=== PATIENT | male | born 1960 | race Two or more races ===

== ENCOUNTER 2022-08-28 10:35 | Day surgery (SDC) | payer OTHER ==
--- NOTE | 2022-08-27 20:47 | HP ---
HISTORY AND PHYSICAL DATE OF SURGERY: 08/28/2022 HISTORY OF PRESENT ILLNESS: Melva Camacho is a 62-year-old patient seen with symptomatic right knee osteoarthritis. We discussed options. He elected to proceed with right total knee arthroplasty. Consent regarding the procedure was obtained. PAST MEDICAL HISTORY: Hypertension, hyperlipidemia, [id number] diabetes. PAST SURGICAL HISTORY: Noncontributory. DAILY MEDICATIONS: 1. Enalapril. 2. Metformin. 3. Pravastatin. 4. Tylenol. 5. Singulair. ALLERGIES: None. SOCIAL HISTORY: Denies tobacco use. PHYSICAL EVALUATION OF RIGHT KNEE: Range of motion is -1/2 to 110 degrees. Tenderness to medial joint line. Mild effusion. Crepitus, medial patellofemoral compartments with range of motion. Some pain with patellofemoral compression. Ligaments stable. Hip rotation without pain. Distal neurovascular exam is intact. RADIOGRAPHS: Right knee radiographs reveal severe osteoarthritic changes. IMPRESSION: 1. Right knee osteoarthritis. 2. Hypertension. 3. Hyperlipidemia. PLAN: Right total knee arthroplasty. MMODL / IJN: [id number] /
[~2022-08-28 10:35] MED LIST: ACETAMINOPHEN TAB 500 MG TAB PO PRN; DEXAMETHASONE SOD PHOSPHATE 4 MG/ML 1 ML VIAL IV ONE; HYDROmorphone 0.5 MG/0.5 ML SYRINGE IVP PRN; LACTATED RINGERS 1,000 ML IV SCH; MELOXICAM 7.5 MG TAB PO PRN; MIDAZOLAM 2 MG/2 ML VIAL IV PRN; ONDANSETRON 4 MG/2 ML VIAL IVP ONE; SCOPOLAMINE 1 MG/72 HR PATCH TRANSDERM ONE; TRANEXAMIC ACID IN NACL,ISO-OS 1,000 MG in SALINE 1 100ML.BAG IVPB PRN
[2022-08-28 11:27] LABS: Glucose,Whole Blood 110 mg/dL (70-110)
[2022-08-28] MEDS ORDERED: fentaNYL (PF) 50 MCG/ML 2 ML AMP IVP ONE (11:46)
[2022-08-28] MEDS ORDERED: MIDAZOLAM 2 MG/2 ML VIAL IVP ONE (11:46)
[2022-08-28] MEDS ORDERED: KETAMINE 10 MG/ML 20 ML VIAL ONE (12:38)
[2022-08-28] MEDS ORDERED: SODIUM CHLORIDE 0.9% (PF) 10 ML VIAL ONE (12:38)
[2022-08-28] MEDS ORDERED: fentaNYL (PF) 50 MCG/ML 2 ML AMP ONE (12:38)
[2022-08-28] MEDS ORDERED: PROPOFOL 10 MG/ML 20 ML VIAL IV ONE (12:38)
[2022-08-28] MEDS ORDERED: MIDAZOLAM 2 MG/2 ML VIAL ONE (12:38)
[2022-08-28] MEDS ORDERED: TRANEXAMIC ACID IN NACL,ISO-OS 1,000 MG/100 ML BAG ONE (12:38)
[2022-08-28] MEDS ORDERED: ROPIVACAINE 5 MG/ML 30 ML VIAL ONE (12:38)
[2022-08-28] MEDS ORDERED: ceFAZolin 1,000 MG in SODIUM CHLORIDE 0.9% 1,000 ML IRRIGATION ONE (13:09)
--- NOTE | 2022-08-28 13:31 | P.ANPRN ---
Procedure Note - Anesthesia - Nerve Block Performed Left Adductor Canal Infusion Time Out Performed: Yes (1146) Date of Procedure: 08/28/22 Procedure Start Time: 11:47 Procedure Stop Time: 11:54 Location of Patient: PreOp Indication: Acute Post-Operative Pain, Requested by Surgeon Specifically requested for management of pain by DrDionicio: Olman Cabezas Sedation Type: Sedate with meaningful contact maintained Preparation: Sterile Prep, Sterile Dressing Position: Supine Catheter Depth at Skin (cm): 8 Catheter: Indwelling Needle Types: Pajunk Needle Gauge: 18 Ultrasound used to visualize needle placement: Yes Ultrasound used to observe medication spread: Yes Injectate: 0.5% Ropivacaine (see comment for volume) (15cc + 5cc nacl pf) Blood Aspirated: No Pain Paresthesia on Injection Noted: No Resistance on Injection: Normal Image Stored and Saved: Yes Events: Uneventful and Well Tolerated
--- NOTE | 2022-08-28 13:32 | P.ANPRN ---
Procedure Note - Anesthesia - Nerve Block Performed Right iPack Single Time Out Performed: Yes (1146) Date of Procedure: 08/28/22 Procedure Start Time: 11:52 Procedure Stop Time: 11:54 Location of Patient: PreOp Indication: Acute Post-Operative Pain, Requested by Surgeon Specifically requested for management of pain by DrDionicio: Olman Cabezas Sedation Type: Sedate with meaningful contact maintained Preparation: Sterile Prep Position: Supine Catheter: None Needle Types: Pajunk Needle Gauge: 21 Ultrasound used to visualize needle placement: Yes Ultrasound used to observe medication spread: Yes Injectate: 0.5% Ropivacaine (see comment for volume) (15cc +5cc nacl pf) Blood Aspirated: No Pain Paresthesia on Injection Noted: No Resistance on Injection: Normal Image Stored and Saved: Yes Events: Uneventful and Well Tolerated
[2022-08-28] MEDS ORDERED: HYDROmorphone 1 MG/ML 1 ML SYRINGE IVP PRN (14:33)
[2022-08-28] MEDS ORDERED: HYDROmorphone 0.5 MG/0.5 ML SYRINGE IVP PRN ×2 (14:33)
[2022-08-28] MEDS ORDERED: HYDROcodone/APAP 5-325MG 1 EACH TAB PO PRN (14:33)
[2022-08-28] MEDS ORDERED: NALOXONE 0.4 MG/ML 1 ML VIAL IV PRN (14:33)
[2022-08-28] MEDS ORDERED: ONDANSETRON 4 MG/2 ML VIAL IVP PRN (14:33)
--- NOTE | 2022-08-28 14:33 | P.OP ---
Date of Procedure: 08/28/22 Preoperative Diagnosis: Right knee osteoarthritis Postoperative Diagnosis: Right knee osteoarthritis Procedure(s) Performed: Right total knee arthroplasty Implants: 1. Depuy attune size 7 cruciate-retaining right cemented femur 2. Depuy attune size 7 fixed bearing cemented tibial baseplate 3. Depuy attune size 7 fixed bearing cruciate-retaining 7 mm polyethylene tibial insert 4. Depuy attune 41 mm all polyethylene cemented patella Anesthesia: local (Adductor canal catheter, Ipack block), spinal Surgeon: Olman Cabezas Tear Down Man #1: Jaylen Fajardo Estimated Blood Loss (ml): 40 Pathology: other (Bone) Condition: stable Disposition: PACU Indications for Procedure: 62-year-old patient seen with symptomatic right knee osteoarthritis. After treatment options were discussed, he elected to proceed with total knee a rthroplasty. Operative Findings: see description of procedure Description of Procedure: Patient was taken to the operative suite after having an adductor canal catheter placed by the department of anesthesia. Patient underwent a spinal anesthetic by the department of anesthesia. Patient was given preoperative IV intake antibiotics and TXA. A well-padded tourniquet was placed about the [] lower extremity. The lower extremity was then prepped and draped in the normal sterile orthopedic fashion. The extremity was elevated, a tourniquet was insufflated to 300. A standard anterior incision was made sharply through skin. Dissection was taken down through the subcutaneous soft tissues down to the extensor mechanism. A medial arthrotomy was performed, patella was everted and knee was flexed. There was advanced osteoarthritis noted. I introduced my distal intramedullary femoral drill. I then introduced the distal femoral cutting jig. Freddie THAKKAR secured the cutting jig with 2 pins. I held retractors in position while Freddie THAKKAR performed the distal femoral resection through the guide area we now removed her distal femoral cutting guide. We now placed our 4-in-1 femoral cutting block and positioned and it was secured with 2 pins by Freddie THAKKAR while I held the block in position. The distal femoral finishing was now completed. A proximal tibial cutting guide was positioned. I held the guide in the appropriate position with both hands well Freddie THAKKAR inserted stabilizing pins into the guide. Proximal tibial cut was made. We now placed a trial femoral component into position, along with an appropriate size tibial tray and insert. We now took the knee through range of motion and had full extension good flexion and good overall soft tissue balance noted. The patella was everted and stabilized with 2 towel clips held by Freddie THAKKAR while I performed a flush with patellar quad tendon utilizing a fresh sawblade. We templated the patella, appropriate drill holes were made. An appropriate trial patella was positioned, knee was taken through full range of motion with the patella tracking very nicely. The trial patella was removed. Drill holes were made through the femoral component. All trial components were removed after marking off the appropriate rotation of the tibia. Retractors we re now positioned along the proximal tibia. An appropriate keel punch was made with the appropriate size tibial guide by myself on Freddie THAKKAR assisted by holding retractors. At this point appropriate size implants were chosen and opened. The joint was irrigated copiously with pulse lavage mechanical irrigation. The wound was irrigated with pulse lavage mechanical irrigation. We mixed antibiotic methylmethacrylate. We placed the knee into flexion. We placed multiple retractors assisted by Freddie THAKKAR to expose the proximal tibia. Once the methyl methacrylate was ready, the tibial component was cemented into place removing any excess methylmethacrylate form by both myself and Freddie THAKKAR. The femoral component was cemented into place removing the removing any excess methylmethacrylate performed by both myself and Freddie THAKKAR. We then inserted the appropriate size polyethylene tibial insert. We made sure that it was locked into position. We took the knee into full extension, and then back in a flexion making sure we had removed any excess methylmethacrylate. The patellar component was then cemented down and secured with clamp. Excess methylmethacrylate removed. We kept the knee in full extension, patellar clamp in position until methylmethacrylate had hardened. Once it had hardened the patellar clamp was removed. The knee was taken through full range of motion. The patella tracked nicely. There was good soft tissue balancing. The tourniquet was now released. Additional hemostasis was achieved via electrocautery. A second gram of TXA was given. The wound again was irrigated with pulse lavage mechanical irrigation. The extensor mechanism was repaired with Ethibond suture. We checked the repair with range of motion and it was stable. The subcutaneous soft tissues were repaired with Vicryl in layers. The skin was approximated with pernio/Dermabond. Sterile dressings were applied followed by loose web roll and Jono bandage. The patient was transferred to a bed, and taken to recovery in stable and satisfactory condition. Freddie THAKKAR assisted with this complex procedure.
[2022-08-28] MEDS ORDERED: ROPIVACAINE 1,100 MG, SODIUM CHLORIDE 0.9% 500 ML 330 ML, EMPTY PAIN BALL 1 EACH MISCELLANE PRN ×2 (14:45)
[2022-08-28 15:14] LABS: Glucose,Whole Blood 140 mg/dL (70-110)
--- NOTE | 2022-08-28 15:31 | XR ---
EXAMINATION TYPE: XR knee limited RT DATE OF EXAM: 08/28/2022 COMPARISON: NONE TECHNIQUE: Two views submitted HISTORY: Post op FINDINGS: There is a prosthetic knee in near anatomic alignment. There is soft tissue edema and emphysema. IMPRESSION: 1. Postoperative change. Appears in near-anatomic alignment
[2022-08-28] MEDS ORDERED: ceFAZolin 3 GM in SODIUM CHLORIDE 0.9% 100 ML IVPB SCH (16:00)
[2022-08-28] MEDS: LACTATED RINGERS 1,000 ML IV SCH ×2 (18:58→23:38)
[2022-08-28] MEDS: HYDROcodone/APAP 7.5-325MG 1 EACH TAB PO PRN (20:33)
[2022-08-28 21:00] LABS: Glucose,Whole Blood 183 mg/dL (70-110)
[2022-08-28] MEDS ORDERED: SENNOSIDES-DOCUSATE SODIUM 1 EACH TAB PO SCH (21:00)
[2022-08-29 02:32] VITALS: PULSE 107
[2022-08-29] MEDS ORDERED: ENOXAPARIN 30 MG/0.3 ML SYRINGE SQ SCH (05:00)
[2022-08-29 08:12] VITALS: BP 146/91; RESP 18; TEMP 97.9
[2022-08-29] MEDS ORDERED: MELOXICAM 7.5 MG TAB PO SCH (09:00)
--- NOTE | 2022-08-29 09:36 | P.PN ---
Progress Note - Text Progress Note Date: 08/29/22 Postoperative day # 1 status post total knee arthroplasty, on adductor canal perineural catheter placed for postoperative analgesia. Ropivacaine 0.2% 8 mL per hour through ON-Q pump continuous infusion. Pain is well controlled. On visual analog scale 3/10 Patient is taking PRN oral pain medications. Catheter site: Looks Ok. There is no erythema or tenderness. Continue with the current pain management plan and will follow.
[2022-08-29] MEDS ORDERED: FLUTICASONE 50MCG/SPRAY NASAL 16GM EA NOSTRIL PRN (10:35)
[2022-08-29] MEDS ORDERED: ZOLPIDEM 5 MG TAB PO PRN (10:35)
--- NOTE | 2022-08-29 10:45 | P.CONS ---
History of Present Illness - Reason for Consult Consult date: 08/29/22 Requesting physician: Olman Cabezas - History of Present Illness This is a pleasant 62-year-old male postop day #1 Right total knee arthroplasty. Some physicians was consulted for medical management. Past medical history includes type 2 diabetes mellitus, hypertension, hyperlipidemia, insomnia, osteoarthritis and obesity. Patient currently denies chest pain, shortness breath, nausea, vomiting, fever, chills, constipation, or diarrhea. Patient admits to 4 out of 10 post-surgical right knee pain. Otherwise patient states he feels okay. Review of Systems 14 point review systems was assessed patient was was only positive for those discussed in HPI Past Medical History Past Medical History: Diabetes Mellitus, Hyperlipidemia, Hypertension, Osteoarthritis (OA) Additional Past Medical History / Comment(s): seasonal allergies History of Any Multi-Drug Resistant Organisms: None Reported Past Surgical History: Orthopedic Surgery Additional Past Surgical History / Comment(s): linda bunionectomy, arthroscopy right knee, colonoscopy Past Anesthesia/Blood Transfusion Reactions: No Reported Reaction Past Psychological History: No Psychological Hx Reported Smoking Status: Never smoker Past Alcohol Use History: Occasional Past Drug Use History: None Reported - Past Family History Mother Family Medical History: No Reported History Medications and Allergies Home Medications Medication Instructions Recorded Confirmed Type Acetaminophen/Diphenhydramine 1 tab PO HS 08/22/22 08/28/22 History [Tylenol PM 500-25mg] Aspirin EC [Ecotrin Low Dose] 81 mg PO DAILY 08/22/22 08/28/22 History Dapagliflozin Propanediol [Farxiga] 5 mg PO DAILY 08/22/22 08/28/22 History Diclofenac Sodium Gel [Voltaren 2 gm TOPICAL DIRECTED PRN 08/22/22 08/28/22 History Gel] Enalapril [Vasotec] 10 mg PO BID 08/22/22 08/28/22 History Fluticasone Nasal [place] [Flonase 2 spray EA NOSTRIL DAILY PRN 08/22/22 08/28/22 History Nasal [place]] Liraglutide [Victoza 3-Luis] 1.8 mg SQ DAILY 08/22/22 08/28/22 History Loratadine [Claritin] 10 mg PO DAILY 08/22/22 08/28/22 History Montelukast Sodium [Singulair] 10 mg PO HS 08/22/22 08/28/22 History Multivitamins, Thera [Multivitamin 1 tab PO DAILY 08/22/22 08/28/22 History (formulary)] Nabumetone [Relafen] 500 mg PO BID 08/22/22 08/28/22 History Pravastatin Sodium [Pravachol] 40 mg PO HS 08/22/22 08/28/22 History Zolpidem [Ambien] 10 mg PO HS PRN 08/22/22 08/28/22 History metFORMIN HCL [Glucophage] 1,000 mg PO BID 08/22/22 08/28/22 History Allergies Allergy/AdvReac Type Severity Reaction Status Date / Time No Known Allergies Allergy Verified 08/28/22 11:27 Physical Exam Osteopathic Statement: *. No significant issues noted on an osteopathic structural exam other than those noted in the History and Physical/Consult. Vitals: Vital Signs Temp Pulse Pulse Resp BP BP Pulse Ox 08/29/22 07:11 97.9 F 107 H 18 146/91 100 08/29/22 01:44 99.1 F 107 H 16 118/73 96 08/28/22 19:01 97.9 F 84 16 128/81 08/28/22 18:04 97.8 F 69 15 126/70 97 08/28/22 17:33 97.8 F 69 15 126/70 08/28/22 17:25 82 16 140/85 96 08/28/22 16:55 78 16 126/80 98 08/28/22 16:40 72 16 116/74 96 08/28/22 16:25 77 16 121/72 99 08/28/22 16:10 72 16 121/71 99 08/28/22 15:55 66 16 119/68 99 08/28/22 15:25 65 16 112/70 99 08/28/22 15:10 68 16 117/71 100 08/28/22 14:55 70 16 109/68 100 08/28/22 14:41 98 F 74 16 111/66 100 08/28/22 11:58 85 18 133/80 96 08/28/22 11:00 98.2 F 85 18 160/85 95 Intake and Output 08/28/22 08/29/22 08/29/22 22:59 06:59 14:59 Intake Total 730 Output Total 0 Balance 730 Intake: IV 250 Oral 480 Output: Urine 0 Other: Weight 118.2 kg General: [non toxic], [no distress], [appears at stated age] Derm: [warm], [dry] Head: [atraumatic], [normocephalic], [symmetric] Eyes: [EOMI], [no lid lag], [anicteric sclera] Mouth: [no lip lesion], [mucus membranes moist] Cardiovascular: [S1S2 reg], [no murmur], [positive posterior tibial pulse bilateral], Lungs: [CTA bilateral], [no rhonchi, no rales] , [no accessory muscle use] Abdominal: [soft], [ nontender to palpation], [no guarding], [no appreciable organomegaly] Ext: [no gross muscle atrophy], [no edema], [no contractures] Neuro: [ CN II-XI grossly intact], [no focal neuro deficits] Psych: [Alert], [oriented], [appropriate affect] Results Labs: Abnormal Lab Results - Last 24 Hours (Table) 08/28/22 08/28/22 Range/Units 15:12 20:59 POC Glucose (mg/dL) 140 H 183 H (70-110) mg/dL Assessment and Plan Assessment: 62-year-old male status post total right knee arthroplasty postop day 1 1. Diabetes mellitus type 2 Restart Farxiga 5 mg by mouth daily Restart Victoza 1.8 mg subcu daily Hold metformin Monitor blood glucose levels every 6 hours Insulin sliding scale 2. Hypertension currently uncontrolled Restart enalapril 10 mg by mouth twice a day 3. Hyperlipidemia Resume aspirin 81 mg by mouth daily Resume pravastatin 40 mg by mouth daily at bedtime 4. 62-year-old male status post total right knee arthroplasty postop day 1 The care of the primary care team Pain control per primary PT OT 5. GI DVT prophylaxis 6. A.m. labs Thank you for allowing some physicians to participate patient's care. If any questions please do not hesitate to contact. Greater than 35 minutes spent coordinating care documenting and counseling patient. Time with Patient: Greater than 30
[2022-08-29] MEDS ORDERED: NON FORMULARY DRUG (Liraglutide [Victoza 3-Pak] 0.6 MG/0.1 ML Ml) SQ SCH (11:00)
[2022-08-29] MEDS ORDERED: LORATADINE 10 MG TAB PO SCH (11:00)
[2022-08-29] MEDS ORDERED: ASPIRIN 81 MG PO SCH (11:00)
[2022-08-29] MEDS ORDERED: DAPAGLIFLOZIN PROPANEDIOL 5 MG TABLET PO SCH (11:00)
[2022-08-29] MEDS ORDERED: MULTIVITAMINS, THERA 1 EACH TAB PO SCH (11:00)
[2022-08-29 11:09] LABS: Basophils # (A) 0.03 X 10*3/uL (0.00-0.10); Basophils % (A) 0.3 %; Eosinophils # (A) 0.01 X 10*3/uL (0.04-0.35); Eosinophils % (A) 0.1 %; HCT 42.2 % (39.6-50.0); Immature Grans, Automated 0.3 %; Lymphocytes # (A) 2.02 X 10*3/uL (0.90-5.00); MCH 29.4 pg (27.0-32.0); MCHC 33.2 g/dL (32.0-37.0); MCV 88.7 fL (80.0-97.0); Mean Platelet Volume 10.2 fL (9.5-12.2); Monocytes # (A) 1.08 X 10*3/uL (0.20-1.00); Monocytes % (A) 9.1 %; NRBC Per 100 WBC 0 /100 WBCS (0.0-0.0); Neutrophils # (A) 8.72 X 10*3/uL (1.80-7.70); Neutrophils % (A) 73.2 %; Platelet Count 218 X 10*3/uL (140-440); RBC 4.76 X 10*6/uL (4.40-5.60); RDW 12.3 % (11.5-14.5)
--- NOTE | 2022-08-29 11:21 | P.PN ---
Subjective Progress Note Date: 08/29/22 Principal diagnosis: status post right total knee arthroplasty Patient is without bedside today, he is resting in his hospital chair. The patient's is present at bedside. He is ambulating well currently with therapy. He was utilizing some IV pain medication through the night. Currently he denies any headaches, lightheadedness, chest pain or shortness of breath. Objective - Vital Signs Vital signs: Vital Signs Temp 97.9 F 08/29/22 07:11 Pulse 107 H 08/29/22 07:11 Resp 18 08/29/22 07:11 BP 146/91 08/29/22 07:11 Pulse Ox 100 08/29/22 07:11 FiO2 Intake & Output 08/28/22 08/29/22 08/29/22 18:59 06:59 18:59 Intake Total 1681 Output Total 40 Balance 1641 Weight 118.2 kg Intake: IV 1201 Oral 480 Output: Urine 0 Estimated Blood Loss 40 - Exam Right lower extremity: Incision is clean, dry, and intact. The foam dressing is in good condition. There is minimal soft tissue swelling and ecchymosis surrounding the medial and lateral aspects of the incision. Calf is soft, no tenderness with palpation. Plantar flexion, dorsiflexion, EHL, FHL are intact. Sensory exam to light touch throughout the extremity is intact, dorsal pedis pulses 2+. - Labs CBC & Chem 7: 08/29/22 07:19 Labs: Abnormal Lab Results - Last 24 Hours (Table) 08/28/22 08/28/22 08/29/22 Range/Units 15:12 20:59 07:19 WBC 11.90 H (4.50-10.00) X 10*3/uL Neutrophils # 8.72 H (1.80-7.70) X 10*3/uL Monocytes # 1.08 H (0.20-1.00) X 10*3/uL Eosinophils # 0.01 L (0.04-0.35) X 10*3/uL POC Glucose (mg/dL) 140 H 183 H (70-110) mg/dL Assessment and Plan Assessment: Postoperative day #1 status post right total knee arthroplasty Plan: Pain control, continue use of the [place] 7.5 mg/325 mg. Hold off on IV pain medication at this time DVT prophylaxis, continue subcu medication. Plan for discharge on aspirin 81 mg twice a day for 30 days Wound care instructions were discussed the patient today, this including icing and elevating along with showering Encourage incentive spirometer Medical recommendations Discharge planning: We'll evaluate patient is afternoon, pending pain control for discharge to home today Time with Patient: Less than 30
[2022-08-29] MEDS: HYDROcodone/APAP 7.5-325MG 1 EACH TAB PO PRN (11:48)
[2022-08-29 11:49] LABS: Glucose,Whole Blood 210 mg/dL (70-110)
[2022-08-29] MEDS: LACTATED RINGERS 1,000 ML IV SCH (12:20)
[2022-08-29] MEDS ORDERED: INSULIN ASPART (NovoLOG) 100 UNIT/ML VIAL SQ SCH (12:30)
--- NOTE | 2022-08-29 14:47 | P.DS ---
Providers Date of admission: 08/28/2022 Expected date of discharge: 08/29/22 Attending physician: Olman Cabezas Consults: 08/28/22 14:33 Consult Physician Routine Consulting Provider: Willard Thornton Consult Reason/Comments: Medical management Do you want consulting provider notified?: Yes Primary care physician: Physician Nonstaff Hospital Course: Date of admission: 08/28/2022 Date of discharge: 08/29/2022 Admission diagnosis: Status post right total knee arthroplasty Discharge diagnosis: Same Attending physician: Dr. Cabezas Surgical procedures: Right total knee arthroplasty Brief history: Patient is a 62-year-old male with a history of progressive primary right knee osteoarthritis. At this point patient has failed conservative treatment measures and has opted to proceed with a elective right total knee arthroplasty. Hospital course: Details of patient's surgery can be found in operative report. Patient tolerated the procedure well and was subsequently transported to orthopedic floor. Patient's orthopeidc and medical care was provided daily. Patient had daily laboratory tests performed for evaluation of overall blood counts. Patient had daily physical therapy to include strengthening range of motion as well as education with walker ambulation. Patient was treated with Lovenox for their postoperative DVT prophylaxis during their inpatient stay. Patient was noted to have a relatively uneventful postoperative course. Patient reported satisfactory pain control with oral pain medications by postoperative day 0. Patient showed satisfactory progress with physical therapy. Patient moved steadily through the program and had no difficulty meeting the goals by postoperative day 1. Given patient's otherwise satisfactory course and having met physical therapy goals, plan is to discharge patient home on postoperative day 1. Discharge condition/disposition: Patient will be discharged home in stable condition. Discharge medications: Instructions are given on resumption of patient's normal daily medications per primary care recommendation, in addition patient will be prescribed [place] 7.5 mg/325 mg, senna, aspirin. Discharge instructions: 1. Wound care and infection precautions, keep incision dry and covered while showering, no lotions, creams, moisturizers. No soaking, tubs, pools, hottubs. Do not scrub over the incision. 2. Weight-bear as tolerated with walker / cane until follow-up. 3. Ice and elevate when necessary. Do not exceed 20 minutes per hour with ice pack. 4. Utilize compression sleeve until seen at first follow up appointment. 5. Visiting nursing care. 6. Home physical therapy including home CPM. 7. Pain meds and anticoagulants per prescription. 8. Pain medication has potential to cause constipation. Increase oral fluid and fiber intake. Contact primary care provider if you have not had a bowel movement within 48 hours after discharge 9. No anti-inflammatory medication until discussed at first post operative visit, this including Motrin, Aleve, Mobic, Diclofenac. 10. Follow up in office at 2 weeks postop with Freddie Fajardo PA-C/Gianluca Lazcano 11. Follow up with your primary care doctor 7-10 days after discharge. 12. Contact [facility] with any questions, . Procedures: Right total knee arthroplasty Patient Condition at Discharge: Good Plan - Discharge Summary Discharge Rx Participant: Yes New Discharge Prescriptions: New Sennosides/Docusate Sodium [Senna-S 8.6-50 mg Tablet] 1 each PO DAILY PRN #21 tablet PRN Reason: Constipation Aspirin [Adult Low Dose Aspirin EC] 81 mg PO BID #60 tab HYDROcodone/APAP 7.5-325MG [[place] 7.5] 1 each PO Q6HR PRN #28 tab PRN Reason: Pain No Action Diclofenac Sodium Gel [Voltaren Gel] 2 gm TOPICAL DIRECTED PRN PRN Reason: Pain Aspirin EC [Ecotrin Low Dose] 81 mg PO DAILY Acetaminophen/Diphenhydramine [Tylenol PM 500-25mg] 1 tab PO HS metFORMIN HCL [Glucophage] 1,000 mg PO BID Nabumetone [Relafen] 500 mg PO BID Loratadine [Claritin] 10 mg PO DAILY Fluticasone Nasal [place] [Flonase Nasal [place]] 2 spray EA NOSTRIL DAILY PRN PRN Reason: allergies Zolpidem [Ambien] 10 mg PO HS PRN PRN Reason: Insomnia Liraglutide [Victoza 3-Luis] 1.8 mg SQ DAILY Enalapril [Vasotec] 10 mg PO BID Pravastatin Sodium [Pravachol] 40 mg PO HS Multivitamins, Thera [Multivitamin (formulary)] 1 tab PO DAILY Montelukast Sodium [Singulair] 10 mg PO HS Dapagliflozin Propanediol [Farxiga] 5 mg PO DAILY Discharge Medication List Acetaminophen/Diphenhydramine [Tylenol PM 500-25mg] 1 tab PO HS 08/22/22 [History] Aspirin EC [Ecotrin Low Dose] 81 mg PO DAILY 08/22/22 [History] Dapagliflozin Propanediol [Farxiga] 5 mg PO DAILY 08/22/22 [History] Diclofenac Sodium Gel [Voltaren Gel] 2 gm TOPICAL DIRECTED PRN 08/22/22 [History] Enalapril [Vasotec] 10 mg PO BID 08/22/22 [History] Fluticasone Nasal [place] [Flonase Nasal [place]] 2 spray EA NOSTRIL DAILY PRN 08/22/22 [History] Liraglutide [Victoza 3-Luis] 1.8 mg SQ DAILY 08/22/22 [History] Loratadine [Claritin] 10 mg PO DAILY 08/22/22 [History] Montelukast Sodium [Singulair] 10 mg PO HS 08/22/22 [History] Multivitamins, Thera [Multivitamin (formulary)] 1 tab PO DAILY 08/22/22 [History] Nabumetone [Relafen] 500 mg PO BID 08/22/22 [History] Pravastatin Sodium [Pravachol] 40 mg PO HS 08/22/22 [History] Zolpidem [Ambien] 10 mg PO HS PRN 08/22/22 [History] metFORMIN HCL [Glucophage] 1,000 mg PO BID 08/22/22 [History] Aspirin [Adult Low Dose Aspirin EC] 81 mg PO BID #60 tab 08/29/22 [Rx] HYDROcodone/APAP 7.5-325MG [[place] 7.5] 1 each PO Q6HR PRN #28 tab 08/29/22 [Rx] Sennosides/Docusate Sodium [Senna-S 8.6-50 mg Tablet] 1 each PO DAILY PRN #21 tablet 08/29/22 [Rx] Follow up Appointment(s)/Referral(s): Jaylen Fajardo PAC [PHYSICIAN WELDER EXPLOSION] - 2 Weeks Activity/Diet/Wound Care/Special Instructions: [facility] at [facility]: #[phone] Orthopedic Discharge Instructions: 1. Wound care and infection precautions, keep incision dry and covered while showering, no lotions, creams, moisturizers. No soaking, pools, hot tubs. Do not scrub over incision. 2. Weight-bear as tolerated with walker / cane until follow-up. 3. Ice and elevate when necessary. Do not exceed 20 minutes per hour with ice pack. 4. Utilize compression sleeve until seen at first follow up appointment. 5. Pain meds and anticoagulants per prescription. 6. Pain medication has potential to cause constipation. Increase oral fluid and fiber intake. Contact primary care provider if you have not had a bowel movement within 48 hours after discharge. 7. No anti-inflammatory medication until discussed at first post operative visit, this including Motrin, Aleve, Mobic, Diclofenac. 8. Follow up in office at 2 weeks postop with Freddie Fajardo PA-C/Gianluca Enriquez PA-C 9. Follow up with your primary care doctor 7-10 days after discharge. 10. Contact [facility] with any questions, . wound care instructions: 1. Okay to remove foam dressing is a 09/04/2022 2. After removal of dressing, SHOWER directly over incision Discharge Disposition: HOME WITH HOME HEALTH SERVICES
[2022-08-29] MEDS ORDERED: lisinopriL 20 MG TAB PO SCH (21:00)
[2022-08-29] MEDS ORDERED: MONTELUKAST 10 MG TAB PO SCH (21:00)
[2022-08-29] MEDS ORDERED: PRAVASTATIN SODIUM 40 MG TAB PO SCH (21:00)
[2022-08-29] MEDS ORDERED: ACETAMINOPHEN TAB 500 MG TAB PO SCH (21:00)
[2022-08-29] MEDS ORDERED: diphenhydrAMINE 25 MG CAP PO SCH (21:00)
[2022-08-30] MEDS ORDERED: PANTOPRAZOLE 40 MG TABLET PO SCH (07:30)
== END 2022-08-29 16:00 | disposition home health service (06) ==
LOC: OR 10:35 → 4SSUR 14:36 → OR 08-29 16:00
PROVIDERS: ATTEND Orthopaedic Surgery
DX: M17.11 Unilateral primary osteoarthritis, right knee (principal); E11.9 Type 2 diabetes mellitus without complications; I10 Essential (primary) hypertension; E78.5 Hyperlipidemia, unspecified; Z79.84 Long term (current) use of oral hypoglycemic drugs; Z79.899 Other long term (current) drug therapy
CPT/HCPCS: 27447; 64448; 64999; 76942; 97161; 85025; 88300; 73560; C1776; C1713 ×2; C1751; J2250; J1100; J0690 ×3; J2405; J3010; J1650; J2795; J2704; J1170

== ENCOUNTER → 2022-10-17 | Outpatient (CLI) | payer OTHER | END | disposition home or self-care (01) | LOC: LABPAT 15:59 | PROVIDERS: ATTEND Orthopaedic Surgery | DX: Z01.812 Encounter for preprocedural laboratory examination (principal); Z22.322 Carrier or suspected carrier of Methicillin resistant Staphylococcus aureus; M17.12 Unilateral primary osteoarthritis, left knee | CPT/HCPCS: 87070 ==

== ENCOUNTER 2022-11-22 05:35 | Day surgery (SDC) | payer OTHER ==
[2022-11-16 11:36] VITALS: BMI 31.8
--- NOTE | 2022-11-21 16:30 | HP ---
HISTORY AND PHYSICAL DATE OF SURGERY: . HISTORY OF PRESENT ILLNESS: Melva Camacho is a 62-year-old gentleman seen with symptomatic left knee osteoarthritis. After treatment options were discussed with him, he elected to proceed with left total knee arthroplasty. Consent regarding the procedure was obtained. PAST MEDICAL HISTORY: Hypertension, hyperlipidemia, tev-bzmnpwg-sqrumitxr diabetes. PAST SURGICAL HISTORY: Right total knee arthroplasty. DAILY MEDICATIONS: Enalapril, metformin, pravastatin, Singulair, Tylenol. ALLERGIES: None. SOCIAL HISTORY: Denies tobacco use. PHYSICAL EVALUATION OF LEFT KNEE: Range of motion is 0 to 115 degrees. Mild effusion. Tenderness along the medial joint line. Crepitus, medial patellofemoral compartments with range of motion. Pain with patellofemoral compression. Ligaments stable. Hip rotation without pain. Distal neurovascular exam is intact. RADIOGRAPHS: Left knee radiographs revealed severe osteoarthritic changes. IMPRESSION: 1. Left knee osteoarthritis. 2. Hypertension. 3. Hyperlipidemia. 4. Lcv-bvfxyxk-mvssoejot diabetes. PLAN: Left total knee arthroplasty. MMODL / IJN: [id number] /
[~2022-11-22 05:35] MED LIST changes: -DEXAMETHASONE SOD PHOSPHATE 4 MG/ML 1 ML VIAL IV ONE; -HYDROmorphone 0.5 MG/0.5 ML SYRINGE IVP PRN; -LACTATED RINGERS 1,000 ML IV SCH; -MIDAZOLAM 2 MG/2 ML VIAL IV PRN; -ONDANSETRON 4 MG/2 ML VIAL IVP ONE; -SCOPOLAMINE 1 MG/72 HR PATCH TRANSDERM ONE; +TRANEXAMIC 1,000 MG/100ML-NACL 1,000 MG in SALINE 1 100ML.BAG IVPB PRN; -TRANEXAMIC ACID IN NACL,ISO-OS 1,000 MG in SALINE 1 100ML.BAG IVPB PRN
[2022-11-22] MEDS ORDERED: ONDANSETRON 4 MG/2 ML VIAL IVP ONE (06:04)
[2022-11-22] MEDS ORDERED: droPERidol 5 MG/2 ML VIAL IVP ONE (06:04)
[2022-11-22] MEDS ORDERED: LIDOCAINE 1% (10MG/ML) FOR IV START INTRADERMA PRN (06:04)
[2022-11-22] MEDS: LACTATED RINGERS 1,000 ML IV SCH ×3 (06:06→22:47)
[2022-11-22 06:39] LABS: Glucose,Whole Blood 117 mg/dL (70-110)
[2022-11-22] MEDS ORDERED: MIDAZOLAM 2 MG/2 ML VIAL IVP ONE (06:50)
[2022-11-22] MEDS ORDERED: HYDROmorphone 0.5 MG/0.5 ML SYRINGE IVP PRN ×3 (07:00→09:12)
[2022-11-22] MEDS ORDERED: SODIUM CHLORIDE 0.9% (PF) 10 ML VIAL ONE (07:24)
[2022-11-22] MEDS ORDERED: DEXAMETHASONE SOD PHOSPHATE 4 MG/ML 1 ML VIAL ONE (07:24)
[2022-11-22] MEDS ORDERED: ROPIVACAINE 5 MG/ML 30 ML VIAL ONE (07:24)
[2022-11-22] MEDS ORDERED: TRANEXAMIC 1,000 MG/100ML-NACL PREMIX BAG ONE (07:24)
[2022-11-22] MEDS ORDERED: MIDAZOLAM 2 MG/2 ML VIAL ONE (07:24)
[2022-11-22] MEDS ORDERED: PROPOFOL 10 MG/ML 20 ML VIAL IV ONE (07:24)
[2022-11-22] MEDS ORDERED: fentaNYL (PF) 50 MCG/ML 2 ML AMP ONE (07:24)
[2022-11-22] MEDS ORDERED: PHENYLEPHRINE-0.9% NACL SYG 1,000 MCG/10 ML SYRINGE ONE (07:24)
[2022-11-22] MEDS ORDERED: ceFAZolin 1,000 MG in SODIUM CHLORIDE 0.9% 1,000 ML IRRIGATION ONE (08:00)
[2022-11-22] MEDS ORDERED: LACTATED RINGERS 1,000 ML IV ONE (08:28)
--- NOTE | 2022-11-22 09:09 | P.OP ---
Date of Procedure: 11/22/22 Preoperative Diagnosis: Left knee osteoarthritis Postoperative Diagnosis: Left knee osteoarthritis Procedure(s) Performed: Left total knee arthroplasty Implants: 1. Depuy attune size 7 left cruciate retaining cemented femur 2. Depuy attune size 7 fixed bearing cemented tibial baseplate 3. Depuy attune size 7 fixed bearing cruciate retaining 7 mm polyethylene tibial insert 4. Depuy attune 41 mm all polyethylene cemented patella Anesthesia: regional (Adductor canal catheter, Ipack block), spinal Surgeon: Olman Cabezas Wedding Coordinator #1: Jaylen Fajardo Estimated Blood Loss (ml): 45 Pathology: none sent Condition: stable Disposition: PACU Indications for Procedure: 63-year-old patient who was seen with symptomatic left knee osteoarthritis. After having options discussed, he elected to proceed with total knee arthro plasty. Operative Findings: See description of procedure Description of Procedure: Patient was taken to the operative suite after having an adductor canal catheter placed by the department of anesthesia. Patient underwent a spinal anesthetic by the department of anesthesia. Patient was given preoperative IV intake antibiotics and TXA. A well-padded tourniquet was placed about the left lower extremity. The lower extremity was then prepped and draped in the normal sterile orthopedic fashion. The extremity was elevated, a tourniquet was ins ufflated to 300. A standard anterior incision was made sharply through skin. Dissection was taken down through the subcutaneous soft tissues down to the extensor mechanism. A medial arthrotomy was performed, patella was everted and knee was flexed. There was advanced osteoarthritis noted. I introduced my distal intramedullary femoral drill. I then introduced the distal femoral cutting jig. Freddie THAKKAR secured the cutting jig with 2 pins. I held retractors in position while Freddie THAKKAR performed the distal femoral resection through the guide area we now removed her distal femoral cutting guide. We now placed our 4-in-1 femoral cutting block and positioned and it was secured with 2 pins by Freddie THAKKAR while I held the block in position. The distal femoral finishing was now completed. A proximal tibial cutting guide was positioned. I held the guide in the appropriate position with both hands well Freddie THAKKAR inserted stabilizing pins into the guide. Proximal tibial cut was made. We now placed a trial femoral component into position, along with an appropriate size tibial tray and insert. We now took the knee through range of motion and had full extension good flexion and good overall soft tissue balance noted. The patella was everted and stabilized with 2 towel clips held by Freddie THAKKAR while I performed a flush with patellar quad tendon utilizing a fresh sawblade. We templated the patella, appropriate drill holes were made. An appropriate trial patella was positioned, knee was taken through full range of motion with the patella tracking very nicely. The trial patella was removed. Drill holes were made through the femoral component. All trial components were removed after marking off the appropriate rotation of the tibia. Retractors were now positioned along the proximal tibia. An appropriate keel punch was made with the appropriate size tibial guide by myself on Freddie THAKKAR assisted by holding retractors. At this point appropriate size implants were chosen and opened. The joint was irrigated copiously with pulse lavage mechanical irrigation. The wound was irrigated with pulse lavage mechanical irrigation. We mixed antibiotic methylmethacrylate. We placed the knee into flexion. We placed multiple retractors assisted by Freddie THAKKAR to expose the proximal tibia. Once the methyl methacrylate was ready, the tibial component was cemented into place removing any excess methylmethacrylate form by both myself and Freddie THAKKAR. The femoral component was cemented into place removing the removing any excess methylmethacrylate performed by both myself and Freddie THAKKAR. We then inserted the appropriate size polyethylene tibial insert. We made sure that it was locked into position. We took the knee into full extension, and then back in a flexion making sure we had removed any excess methylmethacrylate. The patellar component was then cemented down and secured with clamp. Excess methylmethacrylate removed. We kept the knee in full extension, patellar clamp in position until methylmethacrylate had hardened. Once it had hardened the patellar clamp was removed. The knee was taken through full range of motion. The patella tracked nicely. There was good soft tissue balancing. The tourniquet was now released. Additional hemostasis was achieved via electrocautery. A second gram of TXA was given. The wound again was irrigated with pulse lavage mechanical irrigation. The extensor mechanism was repaired with Ethibond suture. We checked the repair with range of motion and it was stable. The subcutaneous soft tissues were repaired with Vicryl in layers. The skin was approximated with pernio/Dermabond. Sterile dressings were applied followed by loose web roll and Jono bandage. The patient was transferred to a bed, and taken to recovery in stable and satisfactory condition. Freddie THAKKAR assisted with this complex procedure.
[2022-11-22] MEDS ORDERED: ONDANSETRON 4 MG/2 ML VIAL IVP PRN (09:12)
[2022-11-22] MEDS ORDERED: HYDROcodone/APAP 7.5-325MG 1 EACH TAB PO PRN (09:12)
[2022-11-22] MEDS ORDERED: HYDROmorphone 1 MG/ML 1 ML SYRINGE IVP PRN (09:12)
[2022-11-22] MEDS ORDERED: NALOXONE 0.4 MG/ML 1 ML VIAL IV PRN (09:12)
[2022-11-22] MEDS ORDERED: HYDROcodone/APAP 5-325MG 1 EACH TAB PO PRN (09:12)
[2022-11-22] MEDS ORDERED: ROPIVACAINE 1,100 MG, SODIUM CHLORIDE 0.9% 500 ML 330 ML, EMPTY PAIN BALL 1 EACH MISCELLANE PRN ×2 (09:49)
[2022-11-22 10:03] LABS: Glucose,Whole Blood 135 mg/dL (70-110)
--- NOTE | 2022-11-22 11:07 | XR ---
EXAMINATION TYPE: XR knee limited LT DATE OF EXAM: 11/22/2022 10:45 AM INDICATION: Patient age:Male; 62 years old; Reason for study: Evaluation for Postop abnormality and alignment; PHH. COMPARISON: None. TECHNIQUE: The Left knee(s) was examined in frontal and crosstable lateral projections. FINDINGS: Post surgical changes from total left knee arthroplasty with distal femoral and proximal tibial components. Hardware appears intact with appropriate alignment. There is associated soft tissu e gas and edema. No acute fracture or dislocation. IMPRESSION: Postsurgical changes from total left knee arthroplasty. Hardware appears intact with appropriate alig nment.
--- NOTE | 2022-11-22 11:56 | P.ANPRN ---
Procedure Note - Anesthesia - Nerve Block Performed Left Adductor Canal Infusion Time Out Performed: Yes Date of Procedure: 11/22/22 Procedure Start Time: 06:49 Procedure Stop Time: 07:00 Location of Patient: PreOp Indication: Acute Post-Operative Pain, Requested by Surgeon Sedation Type: Sedate with meaningful contact maintained Preparation: Sterile Prep, Sterile Dressing Position: Supine Catheter: Indwelling Needle Types: On-Q Needle Gauge: 21 Ultrasound used to visualize needle placement: Yes Ultrasound used to observe medication spread: Yes Blood Aspirated: No Pain Paresthesia on Injection Noted: No Resistance on Injection: Normal Image Stored and Saved: Yes Events: Uneventful and Well Tolerated (13.5% 20 mL plus dexamethasone 4 mg)
--- NOTE | 2022-11-22 11:57 | P.ANPRN ---
Procedure Note - Anesthesia - Nerve Block Performed Left iPack Single Time Out Performed: Yes Date of Procedure: 11/22/22 Procedure Start Time: 07:01 Procedure Stop Time: 07:04 Location of Patient: PreOp Indication: Acute Post-Operative Pain, Requested by Surgeon Sedation Type: Sedate with meaningful contact maintained Preparation: Sterile Prep Position: Supine Needle Types: Pajunk Needle Gauge: 21, Other (see comment) Ultrasound used to visualize needle placement: Yes Ultrasound used to observe medication spread: Yes Blood Aspirated: No Pain Paresthesia on Injection Noted: No Resistance on Injection: Normal Image Stored and Saved: Yes Events: Uneventful and Well Tolerated (Ropivacaine 0.5% 20 mL plus dexamethasone 4 mg)
[2022-11-22] MEDS ORDERED: ZOLPIDEM 5 MG TAB PO PRN (14:28)
[2022-11-22] MEDS ORDERED: DEXTROSE 50% SYRINGE 50 ML IVP PRN ×2 (14:29)
--- NOTE | 2022-11-22 15:24 | P.CONS ---
History of Present Illness - Reason for Consult Consult date: 11/22/22 Medical management Requesting physician: Olman Cabezas - History of Present Illness History of Presenting Illness: Patient is a very pleasant 62-year-old male with a past medical history of hypertension, hyperlipidemia, and diabetes mellitus. He is currently admitted under orthopedic surgery team status post left total knee arthroplasty completed by Dr. Cabezas secondary to left knee osteoarthritis. We have been consulted for medical management for outpatient hospitalization. Patient was seen and fully evaluated at bedside. Patient reports controlled postoperative pain. He denies any postoperative nausea or vomiting. Patient does report difficulties with urination since procedure. Patient currently with postoperative urinary retention. Patient denies postoperative urinary retention during previous procedures and was informed he will be placed on bladder management and may need straight cathed if retaining greater than 400. Patient verbalized understanding and understanding the short-term. Patient denies having any headache, lightheadedness, dizziness, chest pain, palpitations, shortness of breath, or experiencing any numbness or tingling in his extremities. Review of systems: Pertinent positives and negatives as discussed in HPI, a complete review of systems was performed and all other systems are negative. Physical exam: Vital signs reviewed and stable. General: Nontoxic, no distress and appears stated age. Derm: Skin warm and dry, normal coloration for ethnicity. Head: Atraumatic, normocephalic and symmetric. Eyes: EOMs intact, no lid lag, and anicteric sclera Mouth: no lip lesions, mucus membranes moist Cardiovascular: regular rate and rhythm with normal S1S2, no murmur, positive posterior tibial pulses bilaterally, and cap refill < 2 seconds. Lungs: Respirations even, regular, and unlabored on room air. Lungs CTA bilaterally, no rhonchi, no rales, no wheezing, and no accessory muscle usage. Abdominal: soft, nontender to palpation, no guarding, no appreciable organomegaly Ext: . No gross muscle atrophy, no edema, no contractures movement and sensation intact. Postoperative dressing in place to left lower extremity. Neuro: Speech clear, face symmetrical and CN II-XII grossly intact with no noted focal neuro deficits Psych: Alert and oriented to person, place, time, and situation. Appropriate and pleasant affect. Assessment and Plan of Care: Status post left total knee arthroplasty Left knee osteoarthritis -Management per primary admitting orthopedic surgery team including DVT prophylaxis, pain management, wound/dressing changes, weightbearing, and PT/OT. -Patient currently with DVT prophylaxis with Lovenox. Postoperative urinary retention -Bladder management with postvoid residuals and monitor for urinary retention. Patient to be straight cathed as needed for postvoid residual greater than 400 mL's. -If continued postoperative urinary retention we will start patient on Flomax 0.4 mg daily tomorrow morning. Hypertension -Monitor vital signs and continue daily medication regimen with lisinopril 20 mg by mouth twice daily Hyperlipidemia -Encourage her healthy and carb consistent diet. Resume home medication regimen with pravastatin 40 mg nightly. Diabetes mellitus -Hold oral hypoglycemic medication and place patient on glycemic protocol with NovoLog sliding scale at this time. Thank you for allowing us to participate in the care of this pleasant patient. Do not hesitate to contact us with questions. Someone can be reached from the [facility] hospitalist group all hours of the day at [phone] or via [email or web address]. Patient was seen independently by Nurse Practitioner. This document was prepared using [facility] dictation software. Please allow for errors in tape duplicator while rare they do occur. I reviewed the documentation as provided by the JESSICA above, who is the original author of this note. I agree with the documented assessment and plan, with the following changes: none Past Medical History Past Medical History: Diabetes Mellitus, Hyperlipidemia, Hypertension, Osteoarthritis (OA) Additional Past Medical History / Comment(s): seasonal allergies History of Any Multi-Drug Resistant Organisms: None Reported Past Surgical History: Joint Replacement, Orthopedic Surgery Additional Past Surgical History / Comment(s): linda bunionectomy, arthroscopy right knee, colonoscopy, RT TKA 08/28/22 Past Anesthesia/Blood Transfusion Reactions: No Reported Reaction Smoking Status: Never smoker - Past Family History Mother Family Medical History: No Reported History Father Family Medical History: Cancer Medications and Allergies Home Medications Medication Instructions Recorded Confirmed Type Acetaminophen/Diphenhydramine 1 tab PO HS 08/22/22 11/16/22 History [Tylenol PM 500-25mg] Aspirin EC [Ecotrin Low Dose] 81 mg PO DAILY 08/22/22 11/16/22 History Dapagliflozin Propanediol [Farxiga] 5 mg PO DAILY 08/22/22 11/16/22 History Diclofenac Sodium Gel [Voltaren 2 gm TOPICAL DIRECTED PRN 08/22/22 11/16/22 History Gel] Enalapril [Vasotec] 10 mg PO BID 08/22/22 11/22/22 History Fluticasone Nasal [place] [Flonase 2 spray EA NOSTRIL DAILY PRN 08/22/22 11/16/22 History Nasal [place]] Liraglutide [Victoza 3-Luis] 1.8 mg SQ DAILY 08/22/22 11/16/22 History Loratadine [Claritin] 10 mg PO DAILY 08/22/22 11/16/22 History Montelukast Sodium [Singulair] 10 mg PO HS 08/22/22 11/16/22 History Multivitamins, Thera [Multivitamin 1 tab PO DAILY 08/22/22 11/16/22 History (formulary)] Nabumetone [Relafen] 500 mg PO BID 08/22/22 11/16/22 History Pravastatin Sodium [Pravachol] 40 mg PO HS 08/22/22 11/16/22 History Zolpidem [Ambien] 10 mg PO HS PRN 08/22/22 11/16/22 History metFORMIN HCL [Glucophage] 1,000 mg PO BID 08/22/22 11/16/22 History Aspirin [Adult Low Dose Aspirin EC] 81 mg PO BID #60 tab 11/23/22 Rx HYDROcodone/APAP 7.5-325MG [[place] 1 each PO Q6HR PRN #28 tab 11/23/22 Rx 7.5] Sennosides/Docusate Sodium 1 each PO DAILY PRN #21 tablet 11/23/22 Rx [Senna-S 8.6-50 mg Tablet] Allergies Allergy/AdvReac Type Severity Reaction Status Date / Time No Known Allergies Allergy Verified 11/22/22 06:14 Physical Exam Osteopathic Statement: *. No significant issues noted on an osteopathic structural exam other than those noted in the History and Physical/Consult. Vitals: Vital Signs Temp Pulse Resp BP Pulse Ox 11/22/22 12:10 88 20 128/77 96 11/22/22 11:40 84 20 121/76 96 11/22/22 11:08 83 20 124/80 96 11/22/22 10:38 77 20 130/78 96 11/22/22 10:08 76 20 119/72 97 11/22/22 09:51 79 20 111/67 98 11/22/22 09:36 79 16 107/67 96 11/22/22 09:21 97.0 F L 83 12 100/65 96 11/22/22 07:20 88 16 135/76 96 11/22/22 07:05 94 16 115/79 95 11/22/22 06:44 97.1 F L 92 18 120/74 96 Intake and Output 11/21/22 11/22/22 11/22/22 22:59 06:59 14:59 Intake Total 300 1551.5 Output Total 45 Balance 300 1506.5 Intake: IV 300 1551.5 Output: Estimated Blood Loss 45 Other: Weight 112.3 kg Results CBC & Chem 7: 11/23/22 06:37 11/23/22 06:37 Labs: Abnormal Lab Results - Last 24 Hours (Table) 11/22/22 11/22/22 Range/Units 06:37 10:01 POC Glucose (mg/dL) 117 H 135 H (70-110) mg/dL
[2022-11-22 16:55] LABS: Glucose,Whole Blood 203 mg/dL (70-110)
[2022-11-22] MEDS: INSULIN ASPART (NovoLOG) 100 UNIT/ML VIAL SQ SCH ×2 (17:49→22:34)
[2022-11-22] MEDS ORDERED: SENNOSIDES-DOCUSATE SODIUM 1 EACH TAB PO SCH (21:00)
[2022-11-22] MEDS ORDERED: PRAVASTATIN SODIUM 40 MG TAB PO SCH (21:00)
[2022-11-22] MEDS ORDERED: MONTELUKAST 10 MG TAB PO SCH (21:00)
[2022-11-22 21:13] LABS: Glucose,Whole Blood 177 mg/dL (70-110)
[2022-11-22] MEDS: ENOXAPARIN 30 MG/0.3 ML SYRINGE SQ SCH (22:31)
[2022-11-22] MEDS: lisinopriL 20 MG TAB PO SCH (22:32)
[2022-11-22] MEDS: MELOXICAM 7.5 MG TAB PO SCH (22:33)
[2022-11-22 23:13] VITALS: RESP 18
[2022-11-23] MEDS: LACTATED RINGERS 1,000 ML IV SCH (04:36)
[2022-11-23 05:51] LABS: Glucose,Whole Blood 161 mg/dL (70-110)
[2022-11-23] MEDS: INSULIN ASPART (NovoLOG) 100 UNIT/ML VIAL SQ SCH ×2 (06:47→13:17)
[2022-11-23 07:03] LABS: Basophils % (A) 0 %; Eosinophils % (A) 0 %; HCT 44.1 % (39.0-53.0); HGB 14.8 gm/dL (13.0-17.5); Lymphocytes # (A) 1.5 k/uL (1.0-4.8); Lymphocytes % (A) 16 %; MCH 30.7 pg (25.0-35.0); MCHC 33.6 g/dL (31.0-37.0); MCV 91.3 fL (80.0-100.0); Mean Platelet Volume 7.9; Monocytes # (A) 0.8 k/uL (0-1.0); Monocytes % (A) 8 %; Neutrophils # (A) 7.1 k/uL (1.3-7.7); Neutrophils % (A) 74 %; Platelet Count 235 k/uL (150-450); RBC 4.83 m/uL (4.30-5.90); RDW 12.5 % (11.5-15.5); WBC 9.5 k/uL (3.8-10.6)
[2022-11-23 07:17] LABS: African American GFR (CKD) >90 (>60 ml/min/1.73 sqM); Anion Gap 12 mmol/L; Blood Urea Nitrogen 24 mg/dL (9-20); Calcium 9.2 mg/dL (8.4-10.2); Carbon Dioxide 22 mmol/L (22-30); Chloride 105 mmol/L (98-107); Glucose 153 mg/dL (74-99); Magnesium 1.9 mg/dL (1.6-2.3); Non-African American GFR(CKD) >90 (>60 ml/min/1.73 sqM); Potassium 4.7 mmol/L (3.5-5.1); Sodium 139 mmol/L (137-145)
[2022-11-23 07:26] VITALS: BP 161/87; PULSE 94; TEMP 97.7
--- NOTE | 2022-11-23 08:26 | P.PN ---
Progress Note - Text Progress Note Date: 11/23/22 (2149) Anesthesiology Postop day 1 status post total knee arthroplasty with adductor canal catheter. Patient doing well. VAS 2 out of 10. Gross strength intact in lower extremity. Afebrile. Denies alterations in sensorium. Catheter site intact. Heart regular rate Lungs nonlabored Abdomen nondistended Assessment: Postop day 1 status post total knee arthroplasty with adductor canal catheter Plan: 1.All questions answered. Maintain catheter 2 more days with patient removal at home. Instructions to be given at discharge. 2.This note was dictated using [email or web address] software. Please be advised there is a potential for misspellings or errors in residential real estate appraiser.
[2022-11-23] MEDS: ENOXAPARIN 30 MG/0.3 ML SYRINGE SQ SCH (09:58)
[2022-11-23] MEDS: lisinopriL 20 MG TAB PO SCH (09:59)
[2022-11-23] MEDS: MELOXICAM 7.5 MG TAB PO SCH (09:59)
--- NOTE | 2022-11-23 10:14 | P.PN ---
Subjective Progress Note Date: 11/23/22 History of Presenting Illness: Patient is a very pleasant 62-year-old male with a past medical history of hypertension, hyperlipidemia, and diabetes mellitus. He is currently admitted under orthopedic surgery team status post left total knee arthroplasty completed by Dr. Cabezas secondary to left knee osteoarthritis. We have been consulted for medical management for outpatient hospitalization. Physical exam: Patient seen and fully evaluated at bedside this morning. He was sitting up in the chair. Patient does work with physical therapy and is doing well. Patient reports controlled postoperative pain. He also reports full resolution of previous postoperative urinary retention and both he and RN reports urinating without any difficulties. Vital signs reviewed and stable. General: Nontoxic, no distress and appears stated age. Derm: Skin warm and dry, normal coloration for ethnicity. Head: Atraumatic, normocephalic and symmetric. Eyes: EOMs intact, no lid lag, and anicteric sclera Mouth: no lip lesions, mucus membranes moist Cardiovascular: regular rate and rhythm with normal S1S2, no murmur, positive posterior tibial pulses bilaterally, and cap refill < 2 seconds. Lungs: Respirations even, regular, and unlabored on room air. Lungs CTA bilaterally, no rhonchi, no rales, no wheezing, and no accessory muscle usage. Abdominal: soft, nontender to palpation, no guarding, no appreciable organomegaly Ext: . No gross muscle atrophy, no edema, no contractures movement and sensation intact. Postoperative dressing in place to left lower extremity. Neuro: Speech clear, face symmetrical and CN II-XII grossly intact with no noted focal neuro deficits Psych: Alert and oriented to person, place, time, and situation. Appropriate and pleasant affect. Assessment and Plan of Care: Status post left total knee arthroplasty Left knee osteoarthritis -Management per primary admitting orthopedic surgery team including DVT prophylaxis, pain management, wound/dressing changes, weightbearing, and PT/OT. -Patient currently with DVT prophylaxis with Lovenox. Postoperative urinary retention. Resolved. Hypertension. Monitor vital signs and continue daily medication regimen with lisinopril 20 mg by mouth twice daily Hyperlipidemia. Encourage healthy and carb consistent diet. Resume home medication regimen with pravastatin 40 mg nightly. Diabetes mellitus. Recommend resumption of home diabetic medication regimen with Victoza, Farxiga, and metformin. Vital signs reviewed and stable. Blood pressure 161/87, heart rate 94, respiratory rate 18, SpO2 100% on room air with temp 97.7F. Labs completed and reviewed. CBC and BMP were unremarkable. Postoperative hemoglobin stable at 14.8. WBC count of 9.5. Medically, patient is stable from a medical perspective for discharge home once cleared by primary admitting orthopedic surgery team. Thank you for allowing us to participate in the care of this pleasant patient. Do not hesitate to contact us with questions. Someone can be reached from the [facility] hospitalist group all hours of the day at [phone] or via [email or web address]. Patient was seen independently by Nurse Practitioner. This document was prepared using [employer] dictation software. Please allow for errors in sample paster while rare they do occur. Serge Olvera NP rendered care for this patient independently, reviewed the findings and plan as documented in the note above. I did not physically speak with or examine the patient on this date. Objective - Vital Signs Vital signs: Vital Signs Temp 97.7 F 11/23/22 07:24 Pulse 94 11/23/22 08:00 Resp 18 11/23/22 08:00 BP 161/87 11/23/22 07:24 Pulse Ox 100 11/23/22 07:24 FiO2 Intake & Output 11/22/22 11/23/22 11/23/22 18:59 06:59 18:59 Intake Total 1551.5 1350 Output Total 45 Balance 1506.5 1350 Weight 112.3 kg Intake: IV 1551.5 Intake, IV Titration 350 Amount Lactated Ringers 1,000 ml 300 @ 100 mls/hr IV .Q10H RHINA Rx#:[id number] ceFAZolin 2 gm In Sodium 50 Chloride 0.9% 50 ml @ 100 mls/hr IVPB Q8HR [facility]INA Rx# :[id number] Oral 1000 Output: Estimated Blood Loss 45 Other: # Voids 3 3 - Labs CBC & Chem 7: 11/23/22 06:37 11/23/22 06:37 Labs: Abnormal Lab Results - Last 24 Hours (Table) 11/22/22 11/22/22 11/22/22 Range/Units 10:01 16:54 21:12 BUN (9-20) mg/dL Glucose (74-99) mg/dL POC Glucose (mg/dL) 135 H 203 H 177 H (70-110) mg/dL 11/23/22 11/23/22 Range/Units 05:50 06:37 BUN 24 H (9-20) mg/dL Glucose 153 H (74-99) mg/dL POC Glucose (mg/dL) 161 H (70-110) mg/dL
--- NOTE | 2022-11-23 11:39 | P.PN ---
Subjective Progress Note Date: 11/23/22 Principal diagnosis: status post left total knee arthroplasty patient was examined today at bedside, his is present. Patient is doing rather well at this time. He did ambulate well with physical therapy. He has been urinating with no difficulty, there was some urinary retention yesterday that has resolved. Currently he has no headaches, lightheadedness, chest pain or shortness of breath. Objective - Vital Signs Vital signs: Vital Signs Temp 97.7 F 11/23/22 07:24 Pulse 94 11/23/22 08:00 Resp 18 11/23/22 08:00 BP 161/87 11/23/22 07:24 Pulse Ox 100 11/23/22 07:24 FiO2 Intake & Output 11/22/22 11/23/22 11/23/22 18:59 06:59 18:59 Intake Total 1551.5 1350 Output Total 45 Balance 1506.5 1350 Weight 112.3 kg Intake: IV 1551.5 Intake, IV Titration 350 Amount Lactated Ringers 1,000 ml 300 @ 100 mls/hr IV .Q10H [facility]INA Rx#:[id number] ceFAZolin 2 gm In Sodium 50 Chloride 0.9% 50 ml @ 100 mls/hr IVPB Q8HR [facility] Rx# :[id number] Oral 1000 Output: Estimated Blood Loss 45 Other: # Voids 3 3 - Exam Left lower extremity: Incision is clean, dry, and intact. The foam dressing is in good condition. There is minimal soft tissue swelling and ecchymosis surrounding the medial and lateral aspects of the incision. Calf is soft, no tenderness with palpation. Plantar flexion, dorsiflexion, EHL, FHL are intact. Sensory exam to light touch throughout the extremity is intact, [dorsal pedis pulses 2+. - Labs CBC & Chem 7: 11/23/22 06:37 11/23/22 06:37 Labs: Abnormal Lab Results - Last 24 Hours (Table) 11/22/22 11/22/22 11/23/22 Range/Units 16:54 21:12 05:50 BUN (9-20) mg/dL Glucose (74-99) mg/dL POC Glucose (mg/dL) 203 H 177 H 161 H (70-110) mg/dL 11/23/22 Range/Units 06:37 BUN 24 H (9-20) mg/dL Glucose 153 H (74-99) mg/dL POC Glucose (mg/dL) (70-110) mg/dL Assessment and Plan Assessment: postoperative day #1 status post left total knee arthroplasty Plan: Pain control, plan for discharge home on [place] 7.5 mg/325 mg DVT prophylaxis, aspirin 81 mg twice a day for 1 month Wound care instructions were discussed, this including icing and elevating, showering and On-Q pain catheter instructions Medical recommendations appreciated Discharge planning: Patient stable for discharge home today Time with Patient: Less than 30
--- NOTE | 2022-11-23 11:49 | P.DS ---
Providers Date of admission: 11/22/2022 Expected date of discharge: 11/23/22 Attending physician: Olman Cabezas Consults: 11/22/22 09:12 Consult Physician Routine Consulting Provider: Willard Thornton Consult Reason/Comments: Medical management Do you want consulting provider notified?: Yes Primary care physician: Physician Nonstaff Hospital Course: Date of admission: 11/22/2022 Date of discharge: 11/23/2022 Admission diagnosis: status post left total knee arthroplasty Discharge diagnosis: same Attending physician: Dr. Cabezas Surgical procedures: left total knee arthroplasty Brief history: Patient is a 62-year-old male with a history of progressive primary left knee osteoarthritis. At this point patient has failed conservative treatment measures and has opted to proceed with a elective left total knee arthroplasty. Hospital course: Details of patient's surgery can be found in operative report. Patient tolerated the procedure well and was subsequently transported to orthopedic floor. Patient's orthopeidc and medical care was provided daily. Patient had daily laboratory tests performed for evaluation of overall blood counts. Patient had daily physical therapy to include strengthening range of motion as well as education with walker ambulation. Patient was treated with Lovenox for their postoperative DVT prophylaxis during their inpatient stay. Patient was noted to have a relatively uneventful postoperative course. Patient reported satisfactory pain control with oral pain medications by postoperative day 0. Patient showed satisfactory progress with physical therapy. Patient moved steadily through the program and had no difficulty meeting the goals by postoperative day 1. Given patient's otherwise satisfactory course and having met physical therapy goals, plan is to discharge patient home on postoperative day 1. Discharge condition/disposition: Patient will be discharged home in stable condition. Discharge medications: Instructions are given on resumption of patient's normal daily medications per primary care recommendation, in addition patient will be prescribed [place] 7.5 mg/325 mg, senna S, aspirin 81 mg. Discharge instructions: 1. Wound care and infection precautions, keep incision dry and covered while showering, no lotions, creams, moisturizers. No soaking, tubs, pools, hottubs. Do not scrub over the incision. 2. Weight-bear as tolerated with walker / cane until follow-up. 3. Ice and elevate when necessary. Do not exceed 20 minutes per hour with ice pack. 4. Utilize compression sleeve until seen at first follow up appointment. 5. Visiting nursing care. 6. Home physical therapy including home CPM. 7. Pain meds and anticoagulants per prescription. 8. Pain medication has potential to cause constipation. Increase oral fluid and fiber intake. Contact primary care provider if you have not had a bowel movement within 48 hours after discharge 9. No anti-inflammatory medication until discussed at first post operative visit, this including Motrin, Aleve, Mobic, Diclofenac 10. Follow up in office at 2 weeks postop with Freddie Fajardo PA-C/Gianluca Lazcano 11. Follow up with your primary care doctor 7-10 days after discharge. 12. Contact [facility] with any questions, . Procedures: left total knee arthroplasty Plan - Discharge Summary Discharge Rx Participant: Yes New Discharge Prescriptions: New Aspirin [Adult Low Dose Aspirin EC] 81 mg PO BID #60 tab HYDROcodone/APAP 7.5-325MG [[place] 7.5] 1 each PO Q6HR PRN #28 tab PRN Reason: Pain Sennosides/Docusate Sodium [Senna-S 8.6-50 mg Tablet] 1 each PO DAILY PRN #21 tablet PRN Reason: Constipation No Action Diclofenac Sodium Gel [Voltaren Gel] 2 gm TOPICAL DIRECTED PRN PRN Reason: Pain Aspirin EC [Ecotrin Low Dose] 81 mg PO DAILY Acetaminophen/Diphenhydramine [Tylenol PM 500-25mg] 1 tab PO HS metFORMIN HCL [Glucophage] 1,000 mg PO BID Nabumetone [Relafen] 500 mg PO BID Loratadine [Claritin] 10 mg PO DAILY Fluticasone Nasal [place] [Flonase Nasal [place]] 2 spray EA NOSTRIL DAILY PRN PRN Reason: allergies Zolpidem [Ambien] 10 mg PO HS PRN PRN Reason: Insomnia Liraglutide [Victoza 3-Luis] 1.8 mg SQ DAILY Enalapril [Vasotec] 10 mg PO BID Pravastatin Sodium [Pravachol] 40 mg PO HS Multivitamins, Thera [Multivitamin (formulary)] 1 tab PO DAILY Montelukast Sodium [Singulair] 10 mg PO HS Dapagliflozin Propanediol [Farxiga] 5 mg PO DAILY Discharge Medication List Acetaminophen/Diphenhydramine [Tylenol PM 500-25mg] 1 tab PO HS 08/22/22 [History] Aspirin EC [Ecotrin Low Dose] 81 mg PO DAILY 08/22/22 [History] Dapagliflozin Propanediol [Farxiga] 5 mg PO DAILY 08/22/22 [History] Diclofenac Sodium Gel [Voltaren Gel] 2 gm TOPICAL DIRECTED PRN 08/22/22 [History] Enalapril [Vasotec] 10 mg PO BID 08/22/22 [History] Fluticasone Nasal [place] [Flonase Nasal [place]] 2 spray EA NOSTRIL DAILY PRN 08/22/22 [History] Liraglutide [Victoza 3-Luis] 1.8 mg SQ DAILY 08/22/22 [History] Loratadine [Claritin] 10 mg PO DAILY 08/22/22 [History] Montelukast Sodium [Singulair] 10 mg PO HS 08/22/22 [History] Multivitamins, Thera [Multivitamin (formulary)] 1 tab PO DAILY 08/22/22 [History] Nabumetone [Relafen] 500 mg PO BID 08/22/22 [History] Pravastatin Sodium [Pravachol] 40 mg PO HS 08/22/22 [History] Zolpidem [Ambien] 10 mg PO HS PRN 08/22/22 [History] metFORMIN HCL [Glucophage] 1,000 mg PO BID 08/22/22 [History] Aspirin [Adult Low Dose Aspirin EC] 81 mg PO BID #60 tab 11/23/22 [Rx] HYDROcodone/APAP 7.5-325MG [[place] 7.5] 1 each PO Q6HR PRN #28 tab 11/23/22 [Rx] Sennosides/Docusate Sodium [Senna-S 8.6-50 mg Tablet] 1 each PO DAILY PRN #21 tablet 11/23/22 [Rx] Follow up Appointment(s)/Referral(s): Jaylen Fajardo PAC [PHYSICIAN CLAIMS CONSULTANT] - 2 Weeks Activity/Diet/Wound Care/Special Instructions: Orthopedic Discharge Instructions: 1. Wound care and infection precautions, keep incision dry and covered while showering, no lotions, creams, moisturizers. No soaking, pools, hot tubs. Do not scrub over incision. 2. Weight-bear as tolerated with walker / cane until follow-up. 3. Ice and elevate when necessary. Do not exceed 20 minutes per hour with ice pack. 4. Utilize compression sleeve until seen at first follow up appointment. 5. Pain meds and anticoagulants per prescription. 6. Pain medication has potential to cause constipation. Increase oral fluid and fiber intake. Contact primary care provider if you have not had a bowel movement within 48 hours after discharge. 7. No anti-inflammatory medication until discussed at first post operative visit, this including Motrin, Aleve, Mobic, Diclofenac. 8. Follow up in office at 2 weeks postop with Freddie Fajardo PA-C/Gianluca Enriquez PA-C 9. Follow up with your primary care doctor 7-10 days after discharge. 10. Contact [facility] with any questions, . Wound care instructions: 1. okay to remove foam dressing as of 11/29/2022 2. After removal of dressing, SHOWER directly over incision Discharge Disposition: HOME SELF-CARE
[2022-11-23] MEDS ORDERED: MULTIVITAMINS, THERA 1 EACH TAB PO SCH (12:00)
[2022-11-23 13:04] LABS: Glucose,Whole Blood 276 mg/dL (70-110)
== END 2022-11-23 13:53 | disposition home or self-care (01) ==
LOC: OR 05:35 → 4SSUR 09:21 → OR 11-23 13:53
PROVIDERS: ATTEND Orthopaedic Surgery
DX: M17.12 Unilateral primary osteoarthritis, left knee (principal); G89.18 Other acute postprocedural pain; I10 Essential (primary) hypertension; E78.5 Hyperlipidemia, unspecified; E11.9 Type 2 diabetes mellitus without complications; Z79.899 Other long term (current) drug therapy; Z79.84 Long term (current) use of oral hypoglycemic drugs
CPT/HCPCS: 97162; 64999; 64448; 80048; 83735; 85025; 73560; 27447; C1776; C1713 ×2; C1751; J2250; J0690 ×3; J2405; J1650 ×2; J2795; J1170